=== PATIENT | male | born 1980 | race Caucasian/White ===

== ENCOUNTER 2023-07-28 22:57 | Emergency (ER) | payer BC, SELFPAY ==
[2023-07-28 23:00] VITALS: BP 160/107
--- NOTE | 2023-07-29 00:45 | ED.GENMED ---
History of Present Illness
General
Chief Complaint: Fall
Source: patient
Exam Limitations: none
Time Seen by Provider: 07/28/23 23:40
Travel History
Have you had any contact with someone who has COVID-19?: No
Do you have any symptoms of coronavirus? Fever > 100 degrees, chills, cough, shortness of breath, sore throat, loss of taste or smell, muscle aches, or headache?: No
History of Present Illness
History of Present Illness:
This is a 43 year old male that comes in with c/o fall from a skate board. States that he was with his high school buddies and he saw a skate board of someone's child there. States that he tried to use it and fell face first. State that he tried to
brake his fall with his hand and cut his third finger. Denies any LOC. Denies any fever, chills, chest pain, SOB, abd pain, nausea vomiting, diarrhea, headache, dizziness, urinary burning.
Past History
Past History
ED Past Medical History: HTN and Other (Cellulitis left ankle)
ED Past Surgical History: None
Social History
Tobacco: Non-smoker
Alcohol: Occasional
Personal: Single
Living: with family
Review of Systems
Review of Systems
All Other Systems: ROS reviewed and negative except as documented in HPI and ROS
Constitutional: Reports no symptoms; Denies fever or chills
EENT: Reports no symptoms
Respiratory: Reports no symptoms; Denies cough or trouble breathing
Cardiac: Reports no symptoms; Denies chest pain
ABD/GI: Reports no symptoms; Denies abdominal pain, nausea, vomiting or diarrhea
: Reports no symptoms; Denies dysuria, frequency or urgency
Skin: Reports other (Laceration of the right third finger, facial abrasions. Small superficial laceration of the nose. )
Neurological: Reports no symptoms; Denies dizzy or headache
Psychiatric: Reports no symptoms
Phy Exam
General Physical Exam
General Presentation: no apparent distress
General age: appears stated age
General Skin: warm and dry
General Habitus: normal
General Mental: alert
General Hydration: appears well hydrated
ENT Exam
ENT Exam: TM's normal, pharynx normal, neck supple and other (Tenderness with palpation over the bridge of the nose with swelling)
Eye Exam
Eye Exam: EOMI
Cardiovascular Exam
Cardiovascular Exam: regular rate/rhythm, no edema and normal peripheral pulses
Pulmonary Exam
Pulmonary Exam: lungs clear, no respiratory distress, no rales, chest non tender, no crackles, no rhonchi and no cough
Gastrointestinal Exam
Gastrointestinal Exam: normal bowel sounds, non tender, soft, no organomegaly, no pulsatile mass and non distended
Musculoskeletal Exam
Musculoskeletal Exam: full ROM, no edema and other (Patient able to put pressure with the right third finger and flex. Negative for any cervical neck tenderness or spinal tenderness with palapation. )
Skin Exam
Skin Exam: normal color, warm/dry, no rash, no petechia and other (abrasion to the right forehead and nose. Small supericial laceration to the nose. Laceration to the right third finger at the PIP joint. )
Psychiatric Exam
Psychiatric Exam: normal mood/affect
Course
Orders/Labs/Results
Orders:
Orders
07/28/23 23:03
CR Hand - Right Min 3 Views Urgent
Comment:
Reason For Exam: fall, laceration
07/29/23 00:00
CT Facial Bones W/o Iv Contras Urgent
Reason For Exam: fall, facial injury
CT Head W/o Iv Contrast Urgent
Reason For Exam: fall off of skateboard
07/29/23 01:10
Finger(s)/Thumb 2 View Rt [CR Finger(s)/thumb Min 2 Vw Rt] Urgent
Comment: rEPEAET AFTER FINGER WAS CLEANED AND SUTURED
Reason For Exam: qUESTIONABLE FOREIGN OBJECT
07/29/23 01:14
Tetanus/Diphth/Acelpertussis [Adacel] 0.5 ml IM .ONCE ONE
Vital Signs
Initial and Last Documented VS:
Initial Vital Signs
Temp Pulse Resp BP Pulse Ox
98 F 92 20 160/107 98
07/28/23 23:00 07/28/23 23:00 07/28/23 23:00 07/28/23 23:00 07/28/23 23:00
Last Documented Vital Signs
Temp Pulse Resp BP Pulse Ox
98 F 92 20 160/107 98
07/28/23 23:00 07/28/23 23:00 07/28/23 23:00 07/28/23 23:00 07/28/23 23:00
Procedures
Laceration Closure
Right Palmar Third Finger:
Status of Wound: clean
Size of Wound in cm: 4
Description of Wound Edges: sharp
Preparation: cleaned with saline
Anesthesia: 1% Lidocaine
Revision/Debridement: routine- no revision
Wound exploration: explored to base- no FB
Type of Closure: single layer closure
Skin Closure Material: 4-0 nylon
Number of sutures: 7
Nose:
Status of Wound: clean
Description of Wound Edges: sharp
Preparation: cleaned with saline
Type of Closure: Dermabond-skin glue
MDM/Problems Addressed
Differential Diagnosis Includes:
laceration finger and nose. Facial abrasions.
MDM/Problems Addressed:
This is a 43 year old male that comes in with c/o falling off a skate board. States that he fell face first. States that he also has a laceration of the right third finger.
Will get CT of head and facial bones. Will X-ray hand.
Back into see patient. Explained that the CT of his head and facial bones are normal. Laceration of the right finger has been repaired and the superficial nasal laceration was closed with Dermabond. Will discharge home.
Chronic conditions affecting care:
NA
Acute Exacerbation and/or Progression of Chronic Illness:
NA
*Radiology
Radiology exam reviewed: preliminary read by ED provider (Hand- negative for fractures third Finger- Negative for fracture and foreign object note noted at this time. ), radiology read reviewed (CT Head and facial bones Night hawk- Head: NO acute
intracranial findings. Specifically, right frontal subgaleal hematoma without evidence of Underlying fracture or acute intracranial hemorrhage. Face:No acute fracture or dislocation. right supraorbital scalp hematoma. No evidence of retrobulbar )
and other (Hand-1mm radiodensity within the soft tissues medial to the distal aspect of the proximal phalanx of the right middle finger, suspicious for a small soft tissue foreign body. No evidence of acute fracture or dislocation. )
*Pulse Oximetry
Patient hypoxic: no
*EKG
Interpreted by ED Provider?: NA
Rate: EKG- N/A
*Quality Control Supervisor Interpretation
Rate: Quality Control Supervisor- N/A
*Critical Care Note
Total Time (30-74mins, 75-104mins- exclusive of procedures): Not Applicable
ED Attending Note
-
Portions of this chart may have been created with voice recognition software.� Occasional wrong word or��sound alike� substitutions may have occurred due to the inherent limitations of voice recognition software.
Discharge Plan
Departure
Patient Disposition: Home (Routine Discharge)
Date of Disposition: 07/29/23
Time of Disposition: 01:04
Patient with high blood pressure during this ER visit?: Yes
Condition: Good
Covid-19: Not Applicable
Discharge Problem:
Abrasion of face, Laceration of finger of right hand
Instructions: Laceration Repair With Glue (DC), Laceration Repair With Stitches (DC), Skin Abrasions (DC), BLOOD PRESSURE
Activity Restrictions/Additional Instructions:
As discussed, your CT of the facial bones and head are normal. You have had a laceration repair to the right third finger. Please keep this area dry for the next 24 hours. Please do not submerge in water. Follow up with the family doctor in the next
10-14 days for suture removal. You also have superficial laceration to the nose. This has been closed with glue. Please keep this dry for the next 24 hours. After this you may gently pat the area but do not scrub. The glue will fall off in 5-7
days. Tylenol for any headache pain. Ice to any area that is sore but do not get that area wet. IF YOU HAVE ANY OTHER CONCERNS PLEASE RETURN TO THE EMERGENCY ROOM.
Interventions
Interventions:
*Risk Screen - Suicide Last Done: 07/28/23 23:00
*General Assessment Last Done: 07/28/23 23:00
*Neglect/Abuse Screening Last Done: 07/28/23 23:00
Discharge Date and Time
Print Language: KOREAN
[2023-07-29] MEDS: ADACEL 0.5 ML IM (01:42)
[2023-07-29 01:55] VITALS: BP 155/92
== END 2023-07-29 01:56 | disposition home or self-care (01) ==
LOC: EMR 22:57
PROVIDERS: EMERGENCY PHYSICIAN Emergency Medicine; FAMILY PHYSICIAN Internal Medicine
DX: S00.81XA Abrasion of other part of head, initial encounter (principal); S61.212A Laceration without foreign body of right middle finger without damage to nail, initial encounter; V00.131A Fall from skateboard, initial encounter; Y93.51 Activity, roller skating (inline) and skateboarding; Z23 Encounter for immunization; I10 Essential (primary) hypertension
CPT/HCPCS: 99284; 12002; 90471; 70450; 70486; 73130; 73140; 90715

== ENCOUNTER 2023-08-05 17:07 | Emergency (ER) | payer BC, SELFPAY ==
[2023-08-05 17:09] VITALS: BP 150/93
[2023-08-05 17:44] VITALS: BP 139/90
[2023-08-05 17:49] VITALS: BMI 31.2
[2023-08-05 18:00] VITALS: BP 132/81
[2023-08-05 18:01] LABS: % Basophils 0.7 % (0-2); % Eosinophils 2.2 % (0-6); % Immature Granulocytes 0.4 % (0-0.5); % Lymphocytes 19.9 % (20.5-51.1); % Neutrophils 68.8 % (42.2-75.2); Absolute Basophils 0.1 10^3/uL (0-0.2); Absolute Eosinophils 0.2 10^3/uL (0-0.7); Absolute Lymphocytes 1.9 10^3/uL (1.2-3.4); Absolute Monocytes 0.8 10^3/uL (0.1-0.6); Absolute Neutrophils 6.7 10^3/uL (1.4-6.5); Hematocrit 42.6 % (39.0-52.0); Hemoglobin 14.8 g/dL (13.0-18.0); Mean Corp Hgb Conc. 34.7 g/dL (33.0-37.0); Mean Corpuscular Hgb 28.1 pg (27.0-31.0); Mean Corpuscular Volume 80.8 fL (80.0-94.0); Mean Platelet Volume 8.4 fL (7.4-10.4); Nucleated Red Blood Cells % 0 % (-); Platelet Count 416 10^3/uL (130-400); Red Blood Cell Count 5.27 10^6/uL (4.70-6.10); Red Cell Dist. Width 15.3 % (11.5-14.5); White Blood Cell Count 9.7 10^3/uL (4.8-10.8)
[2023-08-05 18:20] LABS: ALT (SGPT) 35 U/L (0-50); AST (SGOT) 44 U/L (17-59); Alkaline Phosphatase 83 U/L (38-126); Blood Urea Nitrogen 16 mg/dl (9-20); Calcium 10.4 mg/dl (8.4-10.2); Carbon Dioxide 26 mmol/L (22-30); Chloride 101 mmol/L (98-107); Estimated Creatinine Clearance 110 ml/min; Glucose 115 mg/dl (70-99); Potassium 4.1 mmol/L (3.5-5.1); Sodium 140 mmol/L (135-145); Total Bilirubin 0.6 mg/dl (0.2-1.3); Total Protein 7.9 g/dl (6.3-8.2); eGFR > 60.00
--- NOTE | 2023-08-05 18:27 | ED.GENMED ---
History of Present Illness
General
Chief Complaint: Breathing Problem
Source: patient and family
Exam Limitations: none
Time Seen by Provider: 08/05/23 17:48
Nursing documentation reviewed up to this point in time: agreed with
Travel History
Have you had any contact with someone who has COVID-19?: No
Do you have any symptoms of coronavirus? Fever > 100 degrees, chills, cough, shortness of breath, sore throat, loss of taste or smell, muscle aches, or headache?: No
History of Present Illness
History of Present Illness:
Patient is a 43-year-old male who currently resides in [place] who presents to the ER for evaluation. Patient reports for the past couple months he has had issues with anxiety raise blood pressure. He is currently on amlodipine metoprolol and
Prozac. He he was on Lexapro for weeks several weeks ago but stopped because it that is raising his blood pressure and is currently on Prozac. This is psychiatrist. He reports for the past 2 weeks he has had issues with chest pain and in fact is
seeing a brim greaser operator here at the [facility] tomorrow. He reports around 2 PM today he was in the food store carrying groceries and felt left-sided chest pressure which resolved when he rested. He also at 4:30 PM was in a car his father
was driving when he suddenly felt very anxious and dizzy felt like his got a pass out had tingling both of his arms and also had left-sided chest pressure. With this episode however he also was short of breath. This episode is what prompted him to
come to the ER.
His father is 70 recently had bypass surgery last year at the [facility] and his maternal grandfather had his first heart attack at age 40.
HE does not smoke.
He does drink alcohol about 4 days a week.
Past History
Past History
ED Past Medical History: HTN and Other (Cellulitis left ankle)
ED Past Surgical History: None
Social History
Tobacco: Non-smoker
Alcohol: Occasional
Personal: Single
Living: with family
Review of Systems
Review of Systems
Allergies reviewed?: Yes
All Other Systems: ROS reviewed and negative except as documented in HPI and ROS
Constitutional: Reports no symptoms; Denies fever, fatigue or chills
Respiratory: Reports trouble breathing
Cardiac: Reports chest pain
ABD/GI: Reports no symptoms
: Reports no symptoms
Musculoskeletal: Reports no symptoms
Skin: Reports no symptoms
Neurological: Reports no symptoms
Psychiatric: Reports no symptoms
Phy Exam
General Physical Exam
General Presentation: no apparent distress
General age: appears stated age
General Skin: warm and dry
General Habitus: normal
General Mental: alert
General Hydration: appears well hydrated
Eye Exam
Eye Exam: PERRL and EOMI
Eye Exam General: PERRL: bilateral and EOM intact: bilateral
Pupil Exam: Bilateral: round and reactive
Cardiovascular Exam
Cardiovascular Exam: regular rate/rhythm, no murmur and normal peripheral pulses
Pulmonary Exam
Pulmonary Exam: lungs clear and no respiratory distress
Neurological Exam
Neurological Exam: alert and oriented x3
Musculoskeletal Exam
Musculoskeletal Exam: full ROM
Skin Exam
Skin Exam: normal color, warm/dry and other (Patient with scattered old bruising around eyes reports previous injury )
Psychiatric Exam
Psychiatric Exam: normal mood/affect
Course
Orders/Labs/Results
Orders:
Orders
08/05/23 17:13
EKG [Electrocardiogram (*1)] Urgent
Reason for Study: Chest Pain
EKG- Treatment ONCE
08/05/23 17:51
CBC/With Diff [Complete Blood Count/With Diff] Urgent
CMP [Comprehensive Metabolic Panel] Urgent
Troponin I Urgent
08/05/23 18:32
Chest [CR Chest - 2 Views ] Urgent
Comment:
Reason For Exam: cp
08/05/23 20:04
EKG- Treatment ONCE
08/05/23 20:24
Troponin I Urgent
08/05/23 20:50
Electrocardiogram (*1) Stat
Reason for Study: Other
Other Reason for Exam: chest pain
Abnormal Lab Results
08/05/23
17:51
RDW 15.3 H %
(11.5-14.5)
Plt Count 416 H 10^3/uL
(130-400)
Absolute Neuts (auto) 6.7 H 10^3/uL
(1.4-6.5)
Absolute Monos (auto) 0.8 H 10^3/uL
(0.1-0.6)
Lymphocytes % 19.9 L %
(20.5-51.1)
Glucose 115 H mg/dl
(70-99)
Calcium 10.4 H mg/dl
(8.4-10.2)
08/05/23 17:51
08/05/23 17:51
Vital Signs
Initial and Last Documented VS:
Initial Vital Signs
Temp Pulse Resp BP Pulse Ox
98 F 85 16 150/93 100
08/05/23 17:09 08/05/23 17:09 08/05/23 17:09 08/05/23 17:09 08/05/23 17:09
Last Documented Vital Signs
Temp Pulse Resp BP Pulse Ox
98 F 74 14 139/83 100
08/05/23 17:09 08/05/23 19:00 08/05/23 17:43 08/05/23 19:00 08/05/23 17:09
Credit Specialist consulted with Physician
Credit Specialist consulted with physician?: Yes
Name of Physician Consulted: Coleman
MDM/Problems Addressed
Differential Diagnosis Includes:
not limited to: CAD , unstable angina, anxieety
MDM/Problems Addressed:
As documented patient is a 40-year-old male who presented to the ER for evaluation of episode of chest discomfort, he had 2 episodes today. He has had off-and-on episodes over the past 2 weeks. He is also having issues with anxiety. Because of
family history he has seen cardiology at the [facility] tomorrow. Patient presents in no acute distress asymptomatic with 2 normal cardiac troponins no acute findings on EKG stable for discharge home with outpatient follow-up
brim greaser operator.
*Radiology
Radiology exam reviewed: radiology read reviewed
*Pulse Oximetry
Patient hypoxic: no
*EKG
Interpreted by ED Provider?: Yes
Interpretation: normal
Comparison EKG: no comparison EKG present
Heart Rate: 77
Rhythm: sinus
Ischemia: no ischemia
*Critical Care Note
Total Time (30-74mins, 75-104mins- exclusive of procedures): Not Applicable
ED Attending Note
-
Portions of this chart may have been created with voice recognition software.� Occasional wrong word or��sound alike� substitutions may have occurred due to the inherent limitations of voice recognition software.
Discharge Plan
Departure
Patient Disposition: Home (Routine Discharge)
Date of Disposition: 08/05/23
Time of Disposition: 21:33
Patient with high blood pressure during this ER visit?: Yes
Condition: Fair
Covid-19: Not Applicable
Discharge Problem:
Chest pain
Instructions: Chest Pain (DC)
Referrals:
AUDI RAZO MD [Family Provider] -
Activity Restrictions/Additional Instructions:
follow up with your brim greaser operator as scheduled tomorrow
Interventions
Interventions:
*Risk Screen - Suicide Last Done: 08/05/23 17:09
*General Assessment Last Done: 08/05/23 17:09
*Neglect/Abuse Screening Last Done: 08/05/23 17:09
ED- Fall Risk Assessment Last Done: 08/05/23 17:49
ED- Cardiac Assessment Last Done: 08/05/23 17:49
ED- Pulmonary Assessment Last Done: 08/05/23 17:49
Discharge Date and Time
Print Language: CAMEROONIAN
[2023-08-05 18:32] LABS: Troponin I < 0.012 ng/ml
[2023-08-05 19:00] VITALS: BP 139/83
[2023-08-05 20:52] LABS: Troponin I < 0.012 ng/ml
[2023-08-05 21:52] VITALS: BP 128/80
== END 2023-08-05 21:53 | disposition home or self-care (01) ==
LOC: EMR 17:07
PROVIDERS: Nurse Practitioner; EMERGENCY PHYSICIAN Student in an Organized Health Care Education/Training Program; FAMILY PHYSICIAN Internal Medicine
DX: R07.89 Other chest pain (principal); F41.9 Anxiety disorder, unspecified; I10 Essential (primary) hypertension; Z82.49 Family history of ischemic heart disease and other diseases of the circulatory system
CPT/HCPCS: 99283; 71046; 80053; 84484; 85025; 93005